=== PATIENT | female | born 1990 ===

== ENCOUNTER 2018-08-30 08:52 | Day surgery (SDC) | payer OTHER ==
[2018-08-30] MEDS ORDERED: PERCOCET 5-3251 EACH PO (11:06)
[2018-08-30] MEDS ORDERED: RECTICARE30 GM TOP (11:07)
== END 2018-08-30 13:12 | disposition home or self-care (01) ==
LOC: CIR.AMB 08:52
DX: K60.1 Chronic anal fissure (principal); K60.3 Anal fistula